=== PATIENT | female | born 2000 | race Caucasian/White ===

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

== ENCOUNTER 2021-04-10 16:48 | Emergency (ER) | payer BC ==
[2021-04-10] MEDS ORDERED: ACETAMINOPHEN 325 MG TAB PO ONE (18:01)
[2021-04-10 18:48] LABS: Bacteria,Urine 1+ /HPF (Negative); Bilirubin,Urine NEG (Negative); Blood,Urine NEG (Negative); Color,Urine Yellow (Yellow); Mucus,Urine 3+ /HPF; Urobilinogen,Urine < 2.0 mg/dL (<2.0)
[2021-04-10 18:50] LABS: HCG Qualitative,Urine Negative (Negative)
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
--- NOTE | 2021-04-10 19:50 | Cat Scan Report ---
CT head/brain wo con INDICATION / CLINICAL INFORMATION: 20 years Female; [employer] with injury, now with head pain.. TECHNIQUE: Routine CT head without contrast. All CT scans at this location are performed using CT dos e reduction for ALARA by means of automated exposure control. COMPARISON: None. FINDINGS: BRAIN / INTRACRANIAL CONTENTS: No acute hemorrhage, mass effect, midline shift, hydrocephalus, or acu te, large territorial infarct. No signs of significant atrophy or chronic infarct. No significant whi te matter abnormality seen. CRANIOCERVICAL JUNCTION: No significant abnormality. ORBITS: No significant abnormality of visualized orbits. SINUSES / MASTOIDS: Visualized paranasal sinuses and mastoid air cells are essentially clear. ADDITIONAL FINDINGS: None. IMPRESSION: 1. No focal mass, hemorrhage, hydrocephalus, or acute, large territorial infarct. Signer Name: Virgilio Valentin MD, III Signed: 04/10/2021 7:46 PM Workstation Name: [email or web address] [email or web address]
--- NOTE | 2021-04-10 19:51 | Cat Scan Report ---
CT cervical spine wo con INDICATION / CLINICAL INFORMATION: 20 years Female; [employer] with injury, now with neck pain.. TECHNIQUE: Axial CT images of the cervical spine were obtained. Sagittal and coronal reformatted images were pr oduced. All CT scans at this location are performed using CT dose reduction for ALARA by means of aut omated exposure control. COMPARISON: None available. FINDINGS: POST-SURGICAL CHANGES: None. ALIGNMENT: Straightening of the cervical spine noted, which may be related to patient positioning. VERTEBRAE: No signs of fracture. Vertebral bodies are grossly normal in height throughout. No signif icant facet joint disease or osseous foraminal narrowing appreciated. INTRAVERTEBRAL DISCS: Disc spaces are fairly well-maintained throughout without significant canal jazmín nosis. PARASPINAL SOFT TISSUES: No significant abnormality. ADDITIONAL FINDINGS: None. IMPRESSION: 1. No signs of acute bony trauma to the cervical spine. Signer Name: Virgilio Valentin MD, III Signed: 04/10/2021 7:47 PM Workstation Name: [facility] [email or web address] [facility]1
--- NOTE | 2021-04-10 20:48 | XRay Report ---
Lumbar spine radiograph, 3 views. HISTORY: Pain COMPARISON: None FINDINGS: Mild left convex curvature of the lumbar spine, centered at L3, may be positional. There is grade 1 anterolisthesis of L5 on S1, measuring 6 mm, with suspected pars defects. Lumbar spinal alig nment is otherwise preserved. Vertebral body heights are intact. No evidence of acute fracture. Soft tissues are unremarkable. IMPRESSION: Grade 1 anterolisthesis of L5 on S1 likely related to bilateral pars defects. No acute ab normality identified. Signer Name: Kaden Cabrera MD Signed: 04/10/2021 8:44 PM Workstation Name: [email or web address]
[2021-04-10 21:09] VITALS: BP 90/64
== END 2021-04-10 21:35 | disposition home or self-care (01) ==
LOC: ED 16:48
DX: S33.9XXA Sprain of unspecified parts of lumbar spine and pelvis, initial encounter (principal); M62.838 Other muscle spasm; M62.830 Muscle spasm of back; F31.9 Bipolar disorder, unspecified; F41.9 Anxiety disorder, unspecified; Z79.899 Other long term (current) drug therapy; V49.49XA Driver injured in collision with other motor vehicles in traffic accident, initial encounter; Y92.410 Unspecified street and highway as the place of occurrence of the external cause; Y93.89 Activity, other specified; Y99.8 Other external cause status
CPT/HCPCS: 36415; 70450; 72100; 72125; 81001; 81025; 84703; 87086

== ENCOUNTER 2022-01-01 12:29 | Outpatient (CLI) | payer BC ==
[2022-01-01 13:06] LABS: Basophils # (Auto) 0.1 K/mm3 (0.0-0.1); Eosinophils # (Auto) 0.3 K/mm3 (0.0-0.4); Eosinophils % (Auto) 4.4 % (0.0-4.3); Hematocrit 39.6 % (30.3-42.9); Hemoglobin 13.3 gm/dl (10.1-14.3); Lymphocytes # (Auto) 1.4 K/mm3 (1.2-5.4); Lymphocytes % (Auto) 24.3 % (13.4-35.0); Mean Corpuscular HGB Conc 34 % (30-34); Mean Corpuscular Volume 90 fl (79-97); Monocytes # (Auto) 0.5 K/mm3 (0.0-0.8); Monocytes % (Auto) 8.6 % (0.0-7.3); Platelet Count 284 K/mm3 (140-440); Red Blood Count 4.42 M/mm3 (3.65-5.03); Red Cell Distribution Width 12.8 % (13.2-15.2)
[2022-01-01 13:29] LABS: Alanine Aminotransferase 30 units/L (7-56); Albumin 4.3 g/dL (3.9-5); Blood Urea Nitrogen 8 mg/dL (7-17); Calcium 8.9 mg/dL (8.4-10.2); Chol/HDL Ratio 2.62 %; HDL Cholesterol 66 mg/dL (40-59); Hemolysis Index 18; LDL Cholesterol,Direct 98 mg/dL (50-130)
[2022-01-01 13:30] LABS: BUN/Creatinine Ratio 11
[2022-01-04 12:01] LABS: Vitamin D, 25-OH, D2 <4 ng/mL
== END 2022-01-01 12:30 | disposition home or self-care (01) ==
LOC: LAB 12:29
PROVIDERS: ATTEND Internal Medicine
DX: Z00.00 Encounter for general adult medical examination without abnormal findings (principal); R53.83 Other fatigue; E55.9 Vitamin D deficiency, unspecified; E78.5 Hyperlipidemia, unspecified
CPT/HCPCS: 36415; 80053; 80061; 82306; 84443; 85025

== ENCOUNTER 2022-04-22 22:07 | Emergency (ER) | payer BC ==
[2022-04-22 22:58] VITALS: BP 104/62
== END 2022-04-23 04:14 | disposition left against medical advice (07) ==
LOC: ED 22:07
DX: R10.9 Unspecified abdominal pain (principal); R07.81 Pleurodynia; Z53.21 Procedure and treatment not carried out due to patient leaving prior to being seen by health care provider

== ENCOUNTER 2022-05-07 15:54 | Outpatient (CLI) | payer BC ==
[2022-05-07 16:53] LABS: Bilirubin,Urine NEG (Negative); Blood,Urine NEG (Negative); Color,Urine Yellow (Yellow); Protein,Urine <15 mg/dL mg/dL (Negative)
[2022-05-07 17:08] LABS: Bacteria,Urine 1+ /HPF (Negative); Mucus,Urine 3+ /HPF
== END 2022-05-07 15:55 | disposition home or self-care (01) ==
LOC: LAB 15:54
PROVIDERS: ATTEND Internal Medicine
DX: N39.0 Urinary tract infection, site not specified (principal)
CPT/HCPCS: 81001; 87086; 87591